=== PATIENT | male | born 1965 | race Caucasian/White ===

== ENCOUNTER 2018-11-27 10:30 | Outpatient (CLI) | payer BC ==
[~2018-11-27 10:30] MED LIST: NKM
--- NOTE | 2018-11-28 08:13 | Diagnostic Imaging Report ---
Indication: Painful cough Technique: 2 views of the chest Comparison: None Findings: The lungs and pleural spaces are clear. The heart size is normal. The bones are unremarkable Impression: No acute process
== END 2018-11-27 12:30 | disposition home or self-care (01) ==
LOC: RAD 10:30
DX: M25.511 Pain in right shoulder (principal)
CPT/HCPCS: 71046

== ENCOUNTER → 2020-02-07 | Outpatient (CLI) | payer BC ==
--- NOTE | 2020-02-07 17:20 | Diagnostic Imaging Report ---
Indication: Cough Technique: 2 views of the chest Comparison: 11/27/2018 Findings: Lungs and pleural spaces are clear. The heart size is normal. The bones are unremarkable. No significant interim change. Impression: Negative
== END | disposition home or self-care (01) ==
LOC: RAD 15:21
DX: Z01.818 Encounter for other preprocedural examination (principal); Z01.810 Encounter for preprocedural cardiovascular examination; R05 Cough
CPT/HCPCS: 71046